=== PATIENT | female | born 1990 | race Caucasian/White ===

== ENCOUNTER 2017-05-16 11:15 | Emergency (ER) | payer MEDICAID ==
[~2017-05-16] VITALS: Ht 160 cm; Wt 79.8 kg
[2017-05-16 11:39] VITALS: BP 120/81
--- NOTE | 2017-05-16 14:17 | NUR ---
CALLED TO A BED,NO ANSWER
== END 2017-05-16 14:17 | disposition left against medical advice (07) ==
LOC: MED 11:15
DX: O26.892 Other specified pregnancy related conditions, second trimester (principal); R06.02 Shortness of breath; R05 Cough; Z53.21 Procedure and treatment not carried out due to patient leaving prior to being seen by health care provider; Z3A.16 16 weeks gestation of pregnancy

== ENCOUNTER 2018-04-04 19:25 | Emergency (ER) | payer MEDICAID ==
[~2018-04-04] VITALS: Ht 162.6 cm; Wt 79.4 kg
[2018-04-04 19:36] VITALS: BP 136/83
--- NOTE | 2018-04-04 19:36 | NUR ---
TO BED # 1 AMBULATORY, REPORT GIVEN TO MAZIN HERRING
--- NOTE | 2018-04-04 19:45 | NUR ---
PT PRESENTED ER WITH C/O PAIN POND AND BODY ACHES X 3 DAYS. PT HAS HAD SOME N/V. DENIES DIARRHEA. PT STATED SHE HAS HAD SOME DIZZINESS, FEVER AND CHILLS. KNA. MEDICAL HX ASTHMA. SKIN IS PINK/WARM/DRY; AAOX4 WITH EVEN AND STEADY GAIT; LUNGS CLEAR BL; HR EVEN AND REGULAR; PATIENT STATES PAIN OF 7/10 AT THIS TIME; VSS; PATIENT POSITIONED FOR COMFORT; HOB ELEVATED; BEDRAILS UP X2; BED DOWN. ER MD MADE AWARE OF PT STATUS.
[2018-04-04] MEDS ORDERED: ACETAMINOPHEN EXTRA STRENGTH 500 MG TAB PO ONE (20:10)
[2018-04-04] MEDS ORDERED: PROMETH/CODEINE 6.25-10MG/5ML 5 ML UDC PO ONE (20:10)
[2018-04-04] MEDS ORDERED: ONDANSETRON 4 MG ODT PO ONE (20:10)
--- NOTE | 2018-04-04 21:10 | NUR ---
PT IS RESTING IN BED, VITALS STABLE.
[2018-04-04 21:18] VITALS: BP 132/79
--- NOTE | 2018-04-04 21:18 | NUR ---
Patient discharged with v/s stable. Written and verbal after care instructions given and explained. Patient alert, oriented and verbalized understanding of instructions. Ambulatory with steady gait. All questions addressed prior to discharge. ID band removed. Patient advised to follow up with PMD. Rx of PROMETHAZINE AND ZOFRAN was given. Patient educated on indication of medication including possible reaction and side effects. Opportunity to ask questions provided and answered.
== END 2018-04-04 21:18 | disposition home or self-care (01) ==
LOC: MED 19:25
DX: B34.9 Viral infection, unspecified (principal); E86.0 Dehydration; Z90.49 Acquired absence of other specified parts of digestive tract
CPT/HCPCS: 81002; 81025; 99284; S0119